=== PATIENT | male | born 1965 | race African-American/Black ===

== ENCOUNTER 2018-01-29 20:05 | Emergency (ER) | payer SELFPAY ==
[~2018-01-29] VITALS: Ht 167.6 cm; Wt 74.8 kg
[2018-01-29 23:15] VITALS: BP 148/98
[2018-01-29] MEDS ORDERED: HYDROcodone-ACET 10/325MG TAB PO ONE (23:30)
[2018-01-30] MEDS ORDERED: KETOROLAC TROMETH 30 MG/ML 1ML VIAL IV ONE (04:45)
[2018-01-30] MEDS ORDERED: ONDANSETRON HCL 4 MG/2 ML VIAL IV ONE (04:45)
[2018-01-30] MEDS ORDERED: cefTRIAXone 1GM/10ml IVPUSH 10 ML IV ONE (04:45)
[2018-01-30] MEDS ORDERED: TETANUS-DIPTH-ACEL PERTUSSIS 0.5ML SYRG IM ONE ×2 (04:45→05:20)
[2018-01-30] MEDS ORDERED: fentaNYL CITRATE 100 MCG/2 ML VL IV ONE (04:45)
== END 2018-01-30 05:31 | disposition home or self-care (01) ==
LOC: ER 20:05
DX: S01.312A Laceration without foreign body of left ear, initial encounter (principal); S80.01XA Contusion of right knee, initial encounter; F17.210 Nicotine dependence, cigarettes, uncomplicated; Y04.0XXA Assault by unarmed brawl or fight, initial encounter; Y93.89 Activity, other specified; Y99.8 Other external cause status; Y92.89 Other specified places as the place of occurrence of the external cause
CPT/HCPCS: 70450; 72125; 73562; 90471; 90715; 96374; 96375